=== PATIENT | female | born 2005 | race Caucasian/White ===

== ENCOUNTER 2024-03-01 00:16 | Emergency (ER) | payer OTHER, SELFPAY ==
[2024-03-01 00:21] VITALS: BP 140/87; PULSE 96; RESP 18; TEMP 36.7; O2SAT 99; BMI 38.3
--- NOTE | 2024-03-01 00:56 | PC.NURSE ---
Pt is a 20 y/o female who presents for evaluation of ? allergic reaction. Pt reports laying down to sleep at approximately 2200 hours hours and feeling congested, tightness in throat, and some shortness of breath. No known allergies, denies any changes in food, activities, and laundry detergents. No known contact with anyone sick. Denies fever. Reports feeling fine/normal prior to these symptoms starting. No obvious distress observed, able to speak in full sentences. No rash or hives reported. Took a total of 50mg of benadryl at home prior to presenting for evaluation. No other complaints/concerns.
--- NOTE | 2024-03-01 01:14 | ED_ITS ---
HPI - General Adult General Chief complaint: Allergic Reaction Stated complaint: allergic reaction Time Seen by Provider: 03/01/24 01:07 Source: patient, RN notes reviewed and old records reviewed Mode of arrival: ambulatory Limitations: no limitations History of Present Illness ED Provider: Tasneem COLES narrative: 18-year-old female with no significant past medical history presents for alfred luation of shortness of breath. Patient reports at 10:00 p.m. last night she felt congested and short of breath. She states she felt worse with lying backwards. She then felt itchy She states that she was concerned with having allergic reaction, she took Benadryl. She states that she still feels itchy and somewhat short of breath. She denies any pain. Denies any fevers, chills She has no known allergies. She had some candy 2 hours prior to the onset of her symptoms Related Data Allergies Allergy/AdvReac Type Severity Reaction Status Date / Time No Known Allergies Allergy Verified 03/01/24 00:26 Review of Systems Constitutional: Constitutional: Denies body ache(s), Denies chills, Denies fever(s) and Denies frequent falls ENT: Reports sore throat Cardiovascular: Cardiovascular: Denies chest pain and Reports dyspnea Respiratory: Respiratory: Denies cough and Reports dyspnea Gastrointestinal: Gastrointestinal: Denies abdominal pain, Denies nausea and Denies vomiting Musculoskeletal: Musculoskeletal: Denies back pain Integumentary/Breasts: Skin/Breast: Denies rash Neurologic: Denies frequent falls Psychiatric: Psychiatric: Reports anxiety PMFSH Social History Social History Advance Directives: No Advance Directives Information Provided: Yes Physical Exam ED Vital Signs: Vital Signs - 24 hr 03/01/24 00:21 Temperature 98.0 F Pulse Rate 96 Respiratory Rate 18 Blood Pressure 140/87 H Pulse Oximetry 99 Oxygen Delivery Method Room Air BMI result Body Mass Index 38.3 Const General: healthy appearing, comfortable, no acute distress, alert and awake Nutritional Appearance: well nourished Orientation/consciousness: patient oriented x3 HENMT Head: Yes normocephalic and Yes atraumatic Throat: Yes posterior oropharynx normal Eyes Eyelids: Yes eyelids normal Conjunctivae: conjunctivae normal Sclerae: sclerae normal Corneas: corneas normal Pupils: Equal, round and reactive pupils present EOM: EOMs intact bilaterally Neck Neck: Yes full ROM Resp Effort & Inspection: normal respiratory effort, able to speak in complete sentences and not labored GI Inspection: No distended Palpation (GI): Soft to palpation, not firm, nontender, no guarding and not rigid Skin General skin exam: no rashes or lesions noted and elasticity normal Neuro General: patient oriented x3 Cranial nerves: Yes Equal, round and reactive pupils present and Yes Bilaterally intact EOM present Cognition (Neuro): normal cognition Extrem Other: Moving all extremities well without any obvious deformities Medical Decision Making Medical Decision Making MDM Narrative: 18-year-old female presents for evaluation of congestion, shortness of breath. Her vital signs are within normal limits, she has no rashes, no urticaria, no facial swelling, oral perioral or retropharyngeal edema. There is no stridor on auscultation of her throat or lung king. There is no indication to suggest she had a true allergic reaction. She may be developing an upper respiratory infection versus a panic attack. She was given return precautions but her symptoms started nearly 4 hours ago and she has no objective findings to suggest any type of hypersensitivity reaction. She is stable for discharge at this time Differential Diagnosis Differential Diagnoses: The differential diagnosis associated with the presentation includes Congestion Upper respiratory infection Viral syndrome Allergic reaction Urticaria Discharge Plan Discharge Clinical Impression: Congestion of throat Patient Disposition: Home, Self-Care Instructions: Cold Symptoms (ED) Additional Instructions: Your exam does not show any findings concerning for or consistent with an allergic reaction. You may be developing an upper respiratory infection. You may use Benadryl or other [id number] allergy medication if your symptoms persist Return to the ER for any new or worsening symptoms Stand Alone Forms: Work/School Release Print Language: Scottish
[2024-03-01 01:44] VITALS: BP 140/87; PULSE 96; RESP 18; TEMP 36.7; O2SAT 99
== END 2024-03-01 01:49 | disposition home or self-care (01) ==
PROVIDERS: Emergency Provider Emergency Medicine
DX: J04.10 Acute tracheitis without obstruction (principal); R06.02 Shortness of breath; R09.89 Other specified symptoms and signs involving the circulatory and respiratory systems
CPT/HCPCS: 99282